=== PATIENT | female | born 1945 | race Caucasian/White ===

== ENCOUNTER → 2021-06-28 12:26 | Outpatient (BNVA) | payer MEDICARE, SELFPAY | PROVIDERS: Family Provider Internal Medicine; Visit Provider Nurse Practitioner Family | DX: R10.9 Unspecified abdominal pain (principal); R30.0 Dysuria; R30.9 Painful micturition, unspecified | CPT/HCPCS: 81003 ==

== ENCOUNTER → 2024-01-17 15:55 | Outpatient (BNVA) | payer MEDICARE, SELFPAY | PROVIDERS: Family Provider Internal Medicine; PCP Nurse Practitioner Family; Visit Provider Nurse Practitioner Family | DX: R05.9 Cough, unspecified (principal) | CPT/HCPCS: 87420 ==

== ENCOUNTER → 2024-06-17 08:28 | Outpatient (BNVA) | payer MEDICARE, SELFPAY | PROVIDERS: Family Provider Internal Medicine; PCP Nurse Practitioner Family; Visit Provider Nurse Practitioner Family | CPT/HCPCS: 80053 ==

== ENCOUNTER 2024-07-07 17:53 | Emergency (ER) | payer MEDICARE, SELFPAY ==
[2024-07-07 17:53] VITALS: BP 184/61; PULSE 60; RESP 16; TEMP 36.9; O2SAT 95; BMI 34.9
--- NOTE | 2024-07-07 18:15 | ED.C_ITS ---
Documented by User: Jose Ortiz DO 07/07/24 23:06 HPI - Psych 2 General: Chief Complaint: Psychiatric Symptoms Stated Complaint: SI Time Seen by Provider: 07/07/24 17:55 History of Present Illness: 79-year-old female brought in from the [facility]. Patient is having thoughts of wanting to end it. She reports that she was going to take a bunch of Benadryl. Patient is having difficulty with her family feels that she should not be in the [facility] and that her family will no longer contact her and is causing her distress. Patient has no physical complaints. Associated symptoms: Reports depression and suicidal ideation Related Data Home Medications Medication Instructions Recorded Confirmed albuterol sulfate 90 mcg/actuation g inhalation 09/01/23 06/03/24 aerosol inhaler amlodipine 2.5 mg tablet 2.5 mg PO DAILY 09/01/23 06/03/24 atorvastatin 10 mg tablet 10 mg PO DAILY 09/01/23 06/03/24 buspirone 15 mg tablet 15 mg PO TID 09/01/23 06/03/24 clopidogrel 75 mg tablet 75 mg PO DAILY 09/01/23 06/03/24 hydroxyzine HCl 50 mg tablet 50 mg PO Q6H PRN anxiety 09/01/23 06/03/24 insulin aspart U-100 100 unit/mL See Rx Instructions SUBCUT .COMPLEX 09/01/23 06/03/24 (3 mL) subcutaneous pen (Novolog FlexPen U-100 Insulin aspart) insulin glargine 100 unit/mL (3 22 unit SUBCUT BID 09/01/23 06/03/24 mL) subcutaneous pen (Lantus Solostar U-100 Insulin) levothyroxine 150 mcg tablet 150 mcg PO DAILY 09/01/23 06/03/24 lorazepam 0.5 mg tablet 0.5 mg PO .at hs PRN sleep 09/01/23 06/03/24 metoprolol tartrate 50 mg tablet 50 mg PO BID 09/01/23 06/03/24 nystatin 100,000 unit/gram topical 1 applic topical TID PRN rash 09/01/23 06/03/24 cream nystatin 100,000 unit/gram topical 1 applic topical BID PRN 09/01/23 06/03/24 powder ([facility]) olmesartan 40 mg tablet 40 mg PO DAILY 09/01/23 06/03/24 ondansetron HCl 8 mg tablet 8 mg PO Q8H PRN nausea and vomiting 09/01/23 06/03/24 venlafaxine 75 mg capsule,extended 75 mg PO DAILY 09/01/23 06/03/24 release 24 hr Allergies Allergy/AdvReac Type Severity Reaction Status Date / Time tositumomab iodine-131 Allergy Unknown unk Verified 07/07/24 18:02 Review of Systems 2 Const: Denies: fever(s) or chills Card: Denies: chest pain Resp: Denies: dyspnea or non-productive cough GI: Denies: abdominal pain, nausea or vomiting Neuro: Denies: headache(s) or dizziness Psych: Reports: depression and suicidal ideation PFSH ED 2 PFSH: Medical History Transient cerebral ischemic attack, unspecified Morbid (severe) obesity due to excess calories Suicidal ideations Personal history of (healed) traumatic fracture Syncope and collapse Localized edema Personal history of COVID-19 Dyspnea, unspecified Personal history of urinary (tract) infections Repeated falls Social History Smoking and tobacco/nicotine status: unknown if used tobacco/nicotine Physical Exam 2 Const: COMMON NORMALS: no acute distress, patient oriented x3 and alert Resp: COMMON NORMALS: normal respiratory effort, No use of accessory muscles and clear to auscultation bilaterally AUSCULTATION: clear to auscultation bilaterally Cardio: COMMON NORMALS: regular rate and regular rhythm RATE: regular rate RHYTHM: regular rhythm GI: COMMON NORMALS: Soft to palpation and non-tender PALPATION: Yes Soft to palpation Neuro: COMMON NORMALS: patient oriented x3, no focal motor deficits and no sensory deficits noted SENSORIUM/ORIENTATION: Yes alert Psych: MOOD & AFFECT: Yes depressed mood THOUGHT CONTENT: Yes Suicidality present Course 2 Vital Signs: Vital signs: Vital Signs Temperature 98.4 F 07/07/24 17:53 Pulse Rate 60 07/07/24 17:53 Respiratory Rate 16 07/07/24 17:53 Blood Pressure 184/61 07/07/24 17:53 Pulse Oximetry 95 07/07/24 17:53 Oxygen Delivery Me thod Room Air 07/07/24 17:53 MDM - Psych Medical Decision Making Patient was medically cleared for placement. Patient to be transferred to [facility] for treatment of her suicidal ideations and depression. Patient care transferred at shift change to Dr. Lopez awaiting placement. Lab Data 07/07/24 18:17 07/07/24 18:17 Laboratory Results WBC 7.36 10^3/uL (3.29-11.43) 07/07/24 18:17 RBC 4.49 10^6/uL (3.85-5.65) 07/07/24 18:17 Hgb 13.80 g/dL (11.27-16.99) 07/07/24 18:17 Hct 43.0 % (36-47) 07/07/24 18:17 MCV 95.8 fl (85-98) 07/07/24 18:17 MCH 30.7 pg (27-33) 07/07/24 18:17 MCHC 32.1 g/dL (30-55) 07/07/24 18:17 RDW 12.6 % (12.1-15.1) 07/07/24 18:17 Plt Count 187 10^3/cmm (157-399) 07/07/24 18:17 MPV 11.2 fL (7.4-10.4) H 07/07/24 18:17 Neut % (Auto) 47.5 % 07/07/24 18:17 Lymph % (Auto) 37.5 % 07/07/24 18:17 [place] % (Auto) 9.0 % 07/07/24 18:17 Eos % (Auto) 5.0 % 07/07/24 18:17 Baso % (Auto) 0.7 % 07/07/24 18:17 Neut # (Auto) 3.50 10^3/uL (1.8-7.7) 07/07/24 18:17 Lymph # (Auto) 2.8 10^3/uL (0.8-4.8) 07/07/24 18:17 [place] # (Auto) 0.7 10^3/uL (0.2-0.9) 07/07/24 18:17 Eos # (Auto) 0.4 10^3/uL (0.0-0.8) 07/07/24 18:17 Baso # (Auto) 0.1 10^3/uL (0.0-0.1) 07/07/24 18:17 Nucleated RBC % (auto) 0 % 07/07/24 18:17 Nucleated RBCs # 0.0 /100WBC 07/07/24 18:17 Sodium 140 mmol/L (136-145) 07/07/24 18:17 Potassium 4.5 mmol/L (3.5-5.1) 07/07/24 18:17 Chloride 104 mmol/L (98-107) 07/07/24 18:17 Carbon Dioxide 29 mmol/L (22-29) 07/07/24 18:17 Anion Gap 11.5 (5-19) 07/07/24 18:17 BUN 19 mg/dL (8-23) 07/07/24 18:17 Creatinine 1.3 mg/dL (0.5-0.9) H 07/07/24 18:17 GFR Calculation Not Reportable 07/07/24 18:17 Glucose 139 mg/dL (65-115) H 07/07/24 18:17 POC Glucose 94 mg/dL (70-110) 07/07/24 22:14 Calculated Osmolality 295 mOsm/kg (285-295) 07/07/24 18:17 Calcium 8.7 mg/dL (8.5-10.5) 07/07/24 18:17 Total Bilirubin 0.7 mg/dL (0.15-1.2) 07/07/24 18:17 AST 20 U/L (0-32) 07/07/24 18:17 ALT 15 U/L (0-33) 07/07/24 18:17 Alkaline Phosphatase 113 U/L (35-105) H 07/07/24 18:17 Total Protein 6.6 g/dL (6.6-8.7) 07/07/24 18:17 Albumin 3.7 g/dL (3.5-5.2) 07/07/24 18:17 Globulin 2.9 g/dL (1.3-4.6) 07/07/24 18:17 Vitamin B12 388 pg/mL (232-1245) 07/07/24 18:17 Urine Color Yellow (Yellow) 07/07/24 20:00 Urine Appearance Clear (CLEAR) 07/07/24 20:00 Urine pH 6.5 (5-7) 07/07/24 20:00 Ur Specific [place] 1.010 (1.005-1.030) 07/07/24 20:00 Urine Protein Neg (Negative) 07/07/24 20:00 Urine Glucose (UA) Norm (Normal) 07/07/24 20:00 Urine Ketones Negative (Negative) 07/07/24 20:00 Urine Blood Neg (Negative) 07/07/24 20:00 Urine Nitrate Negative (Negative) 07/07/24 20:00 Urine Bilirubin Neg (Negative) 07/07/24 20:00 Urine Urobilinogen Norm mg/dL (Negative) 07/07/24 20:00 Ur Leukocyte Esterase 1+ (Negative) H 07/07/24 20:00 Urine RBC None /hpf (0-2) 07/07/24 20:00 Urine WBC 0-4 /hpf (0-5) H 07/07/24 20:00 Ur Squamous Epith Cells 0-4 /hpf (0-5) H 07/07/24 20:00 Amorphous Sediment Not Reportable 07/07/24 20:00 Urine Bacteria Trace /hpf (NONE) 07/07/24 20:00 Salicylates < 0.3 mg/dL (3-10) L 07/07/24 18:17 Urine Opiates Screen Negative ng/mL (Negative) 07/07/24 20:00 Acetaminophen < 5.0 ug/mL (10-30) L 07/07/24 18:17 Ur Barbiturates Screen Negative ng/mL (Negative) 07/07/24 20:00 Ur Phencyclidine Scrn Negative ng/mL (Negative) 07/07/24 20:00 Ur Amphetamines Screen Negative ng/mL (Negative) 07/07/24 20:00 U Benzodiazepines Scrn Positive ng/mL (Negative) H 07/07/24 20:00 Urine Cocaine Screen Negative ng/mL (Negative) 07/07/24 20:00 U Marijuana (THC) Screen Negative ng/mL (Negative) 07/07/24 20:00 Coronavirus (PCR) Negative (Negative) 07/07/24 18:26 Influenza A (PCR) Negative (Negative) 07/07/24 18:26 Influenza Type B (PCR) Negative (Negative) 07/07/24 18:26 RSV (PCR) Negative (Negative) 07/07/24 18:26 No radiology studies performed this visit Discharge Plan Discharge Patient Disposition: Xfer Psychiatric Hosp Clinical Impression: Suicidal ideation, Depression Condition: Stable Referrals: Carolina Almazan MD [Family Provider] - Autumn Graham NP [Primary Care Provider] - Coding Level of Care Code ED Infrastructure Architect for Chg Fwd Documented by User: Jame Lopez DO 07/08/24 02:15 HPI - Psych 2 General: Chief Complaint: Psychiatric Symptoms Stated Complaint: SI Time Seen by Provider: 07/07/24 17:55 Related Data Home Medications Medication Instructions Recorded Confirmed albuterol sulfate 90 mcg/actuation g inhalation 09/01/23 06/03/24 aerosol inhaler amlodipine 2.5 mg tablet 2.5 mg PO DAILY 09/01/23 06/03/24 atorvastatin 10 mg tablet 10 mg PO DAILY 09/01/23 06/03/24 buspirone 15 mg tablet 15 mg PO TID 09/01/23 06/03/24 clopidogrel 75 mg tablet 75 mg PO DAILY 09/01/23 06/03/24 hydroxyzine HCl 50 mg tablet 50 mg PO Q6H PRN anxiety 09/01/23 06/03/24 insulin aspart U-100 100 unit/mL See Rx Instructions SUBCUT .COMPLEX 09/01/23 06/03/24 (3 mL) subcutaneous pen (Novolog FlexPen U-100 Insulin aspart) insulin glargine 100 unit/mL (3 22 unit SUBCUT BID 09/01/23 06/03/24 mL) subcutaneous pen (Lantus Solostar U-100 Insulin) levothyroxine 150 mcg tablet 150 mcg PO DAILY 09/01/23 06/03/24 lorazepam 0.5 mg tablet 0.5 mg PO .at hs PRN sleep 09/01/23 06/03/24 metoprolol tartrate 50 mg tablet 50 mg PO BID 09/01/23 06/03/24 nystatin 100,000 unit/gram topical 1 applic topical TID PRN rash 09/01/23 06/03/24 cream nystatin 100,000 unit/gram topical 1 applic topical BID PRN 09/01/23 06/03/24 powder ([facility]) olmesartan 40 mg tablet 40 mg PO DAILY 09/01/23 06/03/24 ondansetron HCl 8 mg tablet 8 mg PO Q8H PRN nausea and vomiting 09/01/23 06/03/24 venlafaxine 75 mg capsule,extended 75 mg PO DAILY 09/01/23 06/03/24 release 24 hr Allergies Allergy/AdvReac Type Severity Reaction Status Date / Time tositumomab iodine-131 Allergy Unknown unk Verified 07/07/24 18:02 PFSH ED 2 PFSH: Medical History Transient cerebral ischemic attack, unspecified Morbid (severe) obesity due to excess calories Suicidal ideations Personal history of (healed) traumatic fracture Syncope and collapse Localized edema Personal history of COVID-19 Dyspnea, unspecified Personal history of urinary (tract) infections Repeated falls Social History Smoking and tobacco/nicotine status: unknown if used tobacco/nicotine Course 2 Vital Signs: Vital signs: Vital Signs Temperature 98.4 F 07/07/24 17:53 Pulse Rate 60 07/07/24 17:53 Respiratory Rate 16 07/07/24 17:53 Blood Pressure 184/61 07/07/24 17:53 Pulse Oximetry 95 07/07/24 17:53 Oxygen Delivery Me thod Room Air 07/07/24 17:53 MDM - Psych Medical Decision Making Patient was medically cleared for placement. Patient to be transferred to behavioral health for treatment of her suicidal ideations and depression. Patient care transferred at shift change to Dr. Lopez awaiting placement. Patient will be transferred to [facility] accepting physician Dr. Devries Lab Data 07/07/24 18:17 07/07/24 18:17 Laboratory Results WBC 7.36 10^3/uL (3.29-11.43) 07/07/24 18:17 RBC 4.49 10^6/uL (3.85-5.65) 07/07/24 18:17 Hgb 13.80 g/dL (11.27-16.99) 07/07/24 18:17 Hct 43.0 % (36-47) 07/07/24 18:17 MCV 95.8 fl (85-98) 07/07/24 18:17 MCH 30.7 pg (27-33) 07/07/24 18:17 MCHC 32.1 g/dL (30-55) 07/07/24 18:17 RDW 12.6 % (12.1-15.1) 07/07/24 18:17 Plt Count 187 10^3/cmm (157-399) 07/07/24 18:17 MPV 11.2 fL (7.4-10.4) H 07/07/24 18:17 Neut % (Auto) 47.5 % 07/07/24 18:17 Lymph % (Auto) 37.5 % 07/07/24 18:17 [place] % (Auto) 9.0 % 07/07/24 18:17 Eos % (Auto) 5.0 % 07/07/24 18:17 Baso % (Auto) 0.7 % 07/07/24 18:17 Neut # (Auto) 3.50 10^3/uL (1.8-7.7) 07/07/24 18:17 Lymph # (Auto) 2.8 10^3/uL (0.8-4.8) 07/07/24 18:17 [place] # (Auto) 0.7 10^3/uL (0.2-0.9) 07/07/24 18:17 Eos # (Auto) 0.4 10^3/uL (0.0-0.8) 07/07/24 18:17 Baso # (Auto) 0.1 10^3/uL (0.0-0.1) 07/07/24 18:17 Nucleated RBC % (auto) 0 % 07/07/24 18:17 Nucleated RBCs # 0.0 /100WBC 07/07/24 18:17 Sodium 140 mmol/L (136-145) 07/07/24 18:17 Potassium 4.5 mmol/L (3.5-5.1) 07/07/24 18:17 Chloride 104 mmol/L (98-107) 07/07/24 18:17 Carbon Dioxide 29 mmol/L (22-29) 07/07/24 18:17 Anion Gap 11.5 (5-19) 07/07/24 18:17 BUN 19 mg/dL (8-23) 07/07/24 18:17 Creatinine 1.3 mg/dL (0.5-0.9) H 07/07/24 18:17 GFR Calculation Not Reportable 07/07/24 18:17 Glucose 139 mg/dL (65-115) H 07/07/24 18:17 POC Glucose 94 mg/dL (70-110) 07/07/24 22:14 Calculated Osmolality 295 mOsm/kg (285-295) 07/07/24 18:17 Calcium 8.7 mg/dL (8.5-10.5) 07/07/24 18:17 Total Bilirubin 0.7 mg/dL (0.15-1.2) 07/07/24 18:17 AST 20 U/L (0-32) 07/07/24 18:17 ALT 15 U/L (0-33) 07/07/24 18:17 Alkaline Phosphatase 113 U/L (35-105) H 07/07/24 18:17 Total Protein 6.6 g/dL (6.6-8.7) 07/07/24 18:17 Albumin 3.7 g/dL (3.5-5.2) 07/07/24 18:17 Globulin 2.9 g/dL (1.3-4.6) 07/07/24 18:17 Vitamin B12 388 pg/mL (232-1245) 07/07/24 18:17 Urine Color Yellow (Yellow) 07/07/24 20:00 Urine Appearance Clear (CLEAR) 07/07/24 20:00 Urine pH 6.5 (5-7) 07/07/24 20:00 Ur Specific [place] 1.010 (1.005-1.030) 07/07/24 20:00 Urine Protein Neg (Negative) 07/07/24 20:00 Urine Glucose (UA) Norm (Normal) 07/07/24 20:00 Urine Ketones Negative (Negative) 07/07/24 20:00 Urine Blood Neg (Negative) 07/07/24 20:00 Urine Nitrate Negative (Negative) 07/07/24 20:00 Urine Bilirubin Neg (Negative) 07/07/24 20:00 Urine Urobilinogen Norm mg/dL (Negative) 07/07/24 20:00 Ur Leukocyte Esterase 1+ (Negative) H 07/07/24 20:00 Urine RBC None /hpf (0-2) 07/07/24 20:00 Urine WBC 0-4 /hpf (0-5) H 07/07/24 20:00 Ur Squamous Epith Cells 0-4 /hpf (0-5) H 07/07/24 20:00 Amorphous Sediment Not Reportable 07/07/24 20:00 Urine Bacteria Trace /hpf (NONE) 07/07/24 20:00 Salicylates < 0.3 mg/dL (3-10) L 07/07/24 18:17 Urine Opiates Screen Negative ng/mL (Negative) 07/07/24 20:00 Acetaminophen < 5.0 ug/mL (10-30) L 07/07/24 18:17 Ur Barbiturates Screen Negative ng/mL (Negative) 07/07/24 20:00 Ur Phencyclidine Scrn Negative ng/mL (Negative) 07/07/24 20:00 Ur Amphetamines Screen Negative ng/mL (Negative) 07/07/24 20:00 U Benzodiazepines Scrn Positive ng/mL (Negative) H 07/07/24 20:00 Urine Cocaine Screen Negative ng/mL (Negative) 07/07/24 20:00 U Marijuana (THC) Screen Negative ng/mL (Negative) 07/07/24 20:00 Coronavirus (PCR) Negative (Negative) 07/07/24 18:26 Influenza A (PCR) Negative (Negative) 07/07/24 18:26 Influenza Type B (PCR) Negative (Negative) 07/07/24 18:26 RSV (PCR) Negative (Negative) 07/07/24 18:26 Discharge Plan Discharge Patient Disposition: Xfer Psychiatric Hosp Clinical Impression: Suicidal ideation, Depression Condition: Stable Referrals: Carolina Almazan MD [Family Provider] - Autumn Graham NP [Primary Care Provider] - Coding Level of Care Code ED Infrastructure Architect for Carlito Elizabeth
[2024-07-07 18:34] LABS: Basophils # 0.1 10^3/uL (0.0-0.1); Basophils % 0.7 %; Eosinophils # 0.4 10^3/uL (0.0-0.8); Lymphocytes # 2.8 10^3/uL (0.8-4.8); Lymphocytes % 37.5 %; Mean Corpuscular HGB Conc 32.1 g/dL (30-55); Mean Corpuscular Hemoglobin 30.7 pg (27-33); Mean Corpuscular Volume 95.8 fl (85-98); Mean Platelet Volume 11.2 fL (7.4-10.4); Monocytes # 0.7 10^3/uL (0.2-0.9); Neutrophils % 47.5 %; Nucleated Red Blood Cells % 0 %; Platelet Count 187 10^3/cmm (157-399); Red Blood Count 4.49 10^6/uL (3.85-5.65); Red Cell Distribution Width 12.6 % (12.1-15.1); White Blood Count 7.36 10^3/uL (3.29-11.43)
[2024-07-07 18:58] LABS: Alanine Aminotransferase 15 U/L (0-33); Albumin Level 3.7 g/dL (3.5-5.2); Alkaline Phosphatase 113 U/L (35-105); Anion Gap 11.5 (5-19); Aspartate Amino Transferase 20 U/L (0-32); Blood Urea Nitrogen 19 mg/dL (8-23); Calcium 8.7 mg/dL (8.5-10.5); Carbon Dioxide 29 mmol/L (22-29); Chloride 104 mmol/L (98-107); Creatinine Clr Calc Pharmacy 41.3649; Globulin 2.9 g/dL (1.3-4.6); Glucose 139 mg/dL (65-115); Osmolality Calculated 295 mOsm/kg (285-295); Potassium 4.5 mmol/L (3.5-5.1); Sodium 140 mmol/L (136-145); Total Bilirubin 0.7 mg/dL (0.15-1.2); Total Protein 6.6 g/dL (6.6-8.7)
[2024-07-07 18:59] LABS: Acetaminophen < 5.0 ug/mL (10-30); Salicylate < 0.3 mg/dL (3-10)
[2024-07-07 19:32] LABS: Covid PCR NEGATIVE (Negative); Influenza A NEGATIVE (Negative); Influenza B NEGATIVE (Negative); Respiratory Syncytial Virus Ce NEGATIVE (Negative)
--- NOTE | 2024-07-07 20:06 | ECG_ITS ---
[facility] Test Date: 2024-07-07 Pat Name: Billy Ricks Department: Room: Gender: Female Chassis Inspector: : 1945 Requested By: Jose Ortiz Order Number: [id number] Harriet MD: Paul Marquez M.D. Measurements Intervals Leonard Rate: 60 P: 64 DE: 185 QRS: 26 QRSD: 93 T: 113 QT: 455 QTc: 458 Interpretive Statements SINUS RHYTHM WITH MARKED SINUS ARRHYTHMIA SEPTAL MYOCARDIAL INFARCTION , PROBABLY OLD [40+ ms Q WAVE IN V1/V2] No previous ECG available for comparison Electronically Signed On 07-08-2024 7:57:19 CDT by Paul Marquez M.D. [email or web address]
[2024-07-07 20:35] LABS: Amphetamines Screen Urine Negative (Negative); Barbiturates Screen Urine Negative (Negative); Benzodiazepines Screen Urine Positive (Negative); Cocaine Screen Urine Negative (Negative); Opiate Screen Urine Negative (Negative); PCP Screen Urine Negative (Negative); THC Screen Urine Negative (Negative)
[2024-07-07 20:49] LABS: Add Urine Microscopic? YES; Bacteria Urine TRACE /hpf; Bilirubin Urine Neg (Negative); Blood Urine Neg (Negative); Glucose Urine UA Norm (Normal); Ketones Urine Negative (Negative); Leukocyte Esterase Urine 1+ (Negative); Nitrate Urine Negative (Negative); Protein Urine Neg (Negative); Squamous Epithelial Cell Urine 0-4 /hpf (0-5); Urine Appearance Clear (CLEAR); Urine Color Yellow (Yellow); Urobilinogen Urine Norm (Negative); WBC Urine 0-4 /hpf (0-5); pH Urine 6.5 (5-7)
[2024-07-07 20:51] LABS: Add Urine Culture? No
[2024-07-07 21:44] LABS: Vitamin B12 388 pg/mL (232-1245)
[2024-07-07 22:17] LABS: Glucose Point of Care 94 mg/dL (70-110)
--- NOTE | 2024-07-07 22:55 | DCPLANNER ---
Irene @ [facility] to review Hanh @ [facility] to review
--- NOTE | 2024-07-08 02:11 | DCPLANNER ---
Irene @ [place] called at [phone] patient accepted -
--- NOTE | 2024-07-08 02:21 | PC.NURSE ---
report called to DK dumas at [facility]. no further questions at this time. awaiting transport from
[2024-07-08 02:22] VITALS: BP 152/73; PULSE 62; RESP 16; O2SAT 95
[2024-07-08 11:04] LABS: Glucose Point of Care 119 mg/dL (70-110)
== END 2024-07-08 13:06 ==
PROVIDERS: Emergency Provider Student in an Organized Health Care Education/Training Program; Family Provider Internal Medicine; PCP Nurse Practitioner Family
DX: R45.851 Suicidal ideations (principal); F32.A Depression, unspecified; Z86.73 Personal history of transient ischemic attack (TIA), and cerebral infarction without residual deficits
CPT/HCPCS: 0241U; 36415; 36416; 80053; 80306; 80307; 81001; 82607; 82962; 83516; 85025; 93005; 99285